=== PATIENT | male | born 1960 | race Caucasian/White ===

== ENCOUNTER 2024-09-25 12:34 | Outpatient (RCR) | payer MEDICARE, OTHER, SELFPAY | END 2024-09-25 23:59 | disposition home or self-care (01) | LOC: RPT 12:34 | DX: Z47.89 Encounter for other orthopedic aftercare (principal); Z73.6 Limitation of activities due to disability; R26.2 Difficulty in walking, not elsewhere classified; M62.81 Muscle weakness (generalized); M79.605 Pain in left leg; M54.50 Low back pain, unspecified; R20.0 Anesthesia of skin; Z98.1 Arthrodesis status | CPT/HCPCS: 97110; 97162; 97530 ==

== ENCOUNTER 2024-10-23 08:54 | Outpatient (RCR) | payer MEDICARE, OTHER, SELFPAY | END 2024-10-23 23:59 | disposition home or self-care (01) | LOC: RPT 08:54 | DX: Z47.89 Encounter for other orthopedic aftercare (principal); R26.2 Difficulty in walking, not elsewhere classified; Z73.6 Limitation of activities due to disability; M62.81 Muscle weakness (generalized); Z98.1 Arthrodesis status; M43.26 Fusion of spine, lumbar region | CPT/HCPCS: 97110; 97112 ==

== ENCOUNTER 2024-11-26 13:21 | Outpatient (RCR) | payer MEDICARE, OTHER, SELFPAY | END 2024-11-26 23:59 | disposition home or self-care (01) | LOC: RPT 13:21 | PROVIDERS: FAMILY PHYSICIAN Family Medicine | DX: Z47.89 Encounter for other orthopedic aftercare (principal); R26.2 Difficulty in walking, not elsewhere classified; Z73.6 Limitation of activities due to disability; M62.81 Muscle weakness (generalized); Z98.1 Arthrodesis status; M43.26 Fusion of spine, lumbar region | CPT/HCPCS: 97110; 97112; 97530 ==

== ENCOUNTER 2024-12-25 09:00 | Outpatient (RCR) | payer MEDICARE, OTHER, SELFPAY | END 2024-12-25 23:59 | disposition home or self-care (01) | LOC: RPT 09:00 | PROVIDERS: ATTENDING PHYSICIAN Student in an Organized Health Care Education/Training Program; FAMILY PHYSICIAN Family Medicine | DX: Z47.89 Encounter for other orthopedic aftercare (principal); Z73.6 Limitation of activities due to disability; R26.2 Difficulty in walking, not elsewhere classified; M62.81 Muscle weakness (generalized); R53.83 Other fatigue; M43.26 Fusion of spine, lumbar region; Z98.1 Arthrodesis status | CPT/HCPCS: 97110; 97112 ==

== ENCOUNTER 2025-01-08 08:33 | Outpatient (RCR) | payer MEDICARE, OTHER, SELFPAY | END 2025-01-10 07:15 | disposition home or self-care (01) | LOC: RPT 08:33 | PROVIDERS: ATTENDING PHYSICIAN Student in an Organized Health Care Education/Training Program; FAMILY PHYSICIAN Family Medicine | DX: Z47.89 Encounter for other orthopedic aftercare (principal); Z73.6 Limitation of activities due to disability; R26.2 Difficulty in walking, not elsewhere classified; M62.81 Muscle weakness (generalized); R53.83 Other fatigue; Z98.1 Arthrodesis status; M43.26 Fusion of spine, lumbar region | CPT/HCPCS: 97110 ==